=== PATIENT | female | born 1940 | race Caucasian/White ===

== ENCOUNTER 2022-02-15 09:39 | Emergency (ER) | payer MEDICARE ==
[~2022-02-15] VITALS: Ht 162.6 cm; Wt 68.0 kg
--- NOTE | 2022-02-15 09:40 | NUR ---
Patient to ER bed 3 to gown for evaluation. Side rails up. Report given to CHELSIE ANDRADE.
[2022-02-15 09:42] VITALS: BP_SYST 148
--- NOTE | 2022-02-15 09:58 | NUR ---
Patient transported to radiology via GURNEY, accompanied by RAD STAFF AND RN.
--- NOTE | 2022-02-15 10:05 | NUR ---
Returned from radiology, back to [facility].
--- NOTE | 2022-02-15 10:15 | NUR ---
this real estate underwriter assess pt earlier she was awake alert and oriented times 3 overall appearances fair pt stated she had right pain radiating from her right heart to her right arm to her right lower leg but pt was found ambulating with her sister to the rest room marta well without c/o did noted pt had sl droop to right mouth but no slurred speech asked if it was normal no answer from pt but sister stated it wasn't normal when real estate underwriter asked pt was she having chest pain denied but did stated she had weakness but her sister stated pt have generalized weakness its normal and that she had parkinson enc pt to stay in bed and nurse will assist her for her general adl's
[2022-02-15 10:16] LABS: BASOPHILS # (AUTO) 0.1 K/uL (0.0-0.2); EOSINOPHILS # (AUTO) 0.2 K/uL (0.0-0.4); HEMATOCRIT 40.6 % (36-48); HEMOGLOBIN 13.7 g/dL (12.0-16.0); LYMPHOCYTES # (AUTO) 1.2 K/uL (1.0-5.5); LYMPHOCYTES % (AUTO) 17.3 % (20.5-51.5); MEAN CORPUSCULAR HEMOGLOBIN 30 pg (27-31); MEAN CORPUSCULAR HGB CONC 34 % (32-36); MEAN CORPUSCULAR VOLUME 90 fL (79.0-98.0); MONOCYTES # (AUTO) 0.4 K/uL (0.0-1.0); MONOCYTES % (AUTO) 5.6 % (1.7-9.3); NEUTROPHILS # (AUTO) 5.3 K/uL (1.8-7.7); NEUTROPHILS % (AUTO) 73.1 % (40.0-70.0); PLATELET COUNT (AUTO) 280 K/uL (130-430); RED CELL DISTRIBUTION WIDTH 12.5 % (9.0-15.0); WHITE BLOOD COUNT (AUTO) 7.2 K/uL (4.8-10.8)
[2022-02-15 10:25] LABS: ANION GAP 13 (5-15); CALCIUM 9.6 mg/dL (8.4-11.0); CHLORIDE 98 mmol/L (98-107); CREATININE 1.03 mg/dL (0.55-1.30); GLUCOSE 108 mg/dL (70-99); POTASSIUM 3.5 mmol/L (3.5-5.1); SODIUM SERUM 136 mmol/L (136-145); UREA NITROGEN, BLOOD 18 mg/dL (8-21)
[2022-02-15 10:29] LABS: INR 0.9 (0.8-1.2); PROTHROMBIN TIME 9.8 SECS (9.5-12.5)
[2022-02-15 10:34] LABS: ALANINE AMINOTRANSFERASE 16 U/L (12-78); ALBUMIN 2.5 g/dL (3.4-4.8); ASPARTATE AMINOTRANSFERASE 26 U/L (10-37); TOTAL BILIRUBIN 0.4 mg/dL (0.0-1.0)
[2022-02-15] MEDS ORDERED: ASPIRIN 81 MG TAB.CHEW PO ONE (11:15)
--- NOTE | 2022-02-15 11:15 | NUR ---
reassess pt no change in condition remains stable without incident
--- NOTE | 2022-02-15 12:15 | NUR ---
pt is aware of her transfer to [place] r/t her insurance, her sister remains at her side condition remains stable with c/o's
[2022-02-15 13:15] VITALS: BP_SYST 121
--- NOTE | 2022-02-15 13:16 | NUR ---
pt was transfer to [place] via [facility] her condition remains stable her sister and her son at her side report given to [place] er's nurse Americo and to [facility] ambulance rn all questions answered and all pt personal belonging given to pt
== END 2022-02-15 13:15 | disposition short-term general hospital (02) ==
LOC: SED 09:39
DX: R53.1 Weakness (principal); R51.9 Headache, unspecified; Z20.822 Contact with and (suspected) exposure to COVID-19
CPT/HCPCS: 36415; 70450-TC; 71045; 76376; 80048; 80053; 82962; 84484; 85025; 85610-TC; 85730-TC; 86886; 86900; 86901; 93005; 99285; 99291

== ENCOUNTER 2022-10-26 18:02 | Emergency (ER) | payer MEDICARE ==
[~2022-10-26] VITALS: Ht 154.9 cm; Wt 62.6 kg
[2022-10-26 18:28] VITALS: BP_SYST 202
--- NOTE | 2022-10-26 18:32 | NUR ---
Patient triaged and placed in waiting room. VSS and patient appears in no acute distress at this time. Accompanied by SELF, awaiting available bed, and MD notified of need for MSE.
--- NOTE | 2022-10-26 19:17 | NUR ---
DR. OH IN TRIAGE FOR MSE
[2022-10-26] MEDS ORDERED: cloNIDine HCL 0.1 MG TABLET PO ONE (19:30)
--- NOTE | 2022-10-26 19:37 | NUR ---
[facility] Side rails up. Report given to Reyes ANDRADE.
--- NOTE | 2022-10-26 19:55 | NUR ---
WILL HOLD CLONIDINE BP WNL. NOTIFIED
[2022-10-26] MEDS ORDERED: KETOROLAC TROMETHAMINE 30 MG VIAL IM ONE (20:15)
--- NOTE | 2022-10-26 20:24 | NUR ---
MEDICATED PER MD ORDERS. PATIENT TOLERATED WELL. AWAITING ULTRASOUND
[2022-10-26] MEDS ORDERED: IBUP-1969 PO (20:39)
[2022-10-26] MEDS ORDERED: HYDR-3917 PO (20:39)
--- NOTE | 2022-10-26 21:01 | NUR ---
PATIENT IN ULTRASOUND
[2022-10-26 21:41] VITALS: BP_SYST 178
--- NOTE | 2022-10-26 21:41 | NUR ---
Patient given written and verbal discharge instructions and verbalizes understanding. ER MD discussed with patient the results and treatment provided. Patient in stable condition. ID arm band removed. IV catheter removed intact and dressing applied, no active bleeding. Rx of NORCO, MOTRIN given. Patient educated on pain management and to follow up with PMD. Pain Scale 0/10 Opportunity for questions provided and answered. Medication side effect fact sheet provided.
== END 2022-10-26 21:41 | disposition home or self-care (01) ==
LOC: SED 18:02
DX: M54.31 Sciatica, right side (principal); M54.50 Low back pain, unspecified; M79.651 Pain in right thigh; I10 Essential (primary) hypertension; Z88.2 Allergy status to sulfonamides; Z79.899 Other long term (current) drug therapy
CPT/HCPCS: 99284; 93971; 96372; J1885